=== PATIENT | female | born 1975 | race Caucasian/White ===

== ENCOUNTER 2021-10-16 06:56 | Day surgery (SDC) | payer MEDICARE, MEDICAID ==
[2021-10-16] VITALS (11 sets, daily range): BP systolic 90–109; BP diastolic 57–77
[~2021-10-16] VITALS: Ht 175.3 cm; Wt 80.7 kg
[~2021-10-16 06:56] MED LIST: ACET-1156 PO; ALBUAER3 IN; ASPI-543 PO; ATOR10TA52 PO; BACL10TA PO; BUPR300T28 PO; DICL1GEL50 TD; DOCU100T15 PO; EREN140I SC; ESTR0.1C5 VA; GALC120I SC; HYDR-3682 PO; IBUP600T27 PO; LISI-716 PO; METO-158 PO; NITR-52 PO; NITR0.4S29 SL; OMEP20TA PO; ONDA-144 PO; RIME75TA PO; SUCR1TAB PO; TEMA30CA PO; TOPI50TA53 PO; TRAZ50TA2 PO
[2021-10-16] MEDS ORDERED: BUPIVACAINE 0.5% P/F INJ 10 ML VIAL ONE (08:35)
[2021-10-16] MEDS ORDERED: LIDOCAINE 2%HCL (LOCAL ANESTH.) INJ 20ML MDV ONE (08:36)
[2021-10-16] MEDS ORDERED: IODIXANOL 320MG/ML 100ML BTL IV ONE (08:36)
[2021-10-16] MEDS ORDERED: ONDANSETRON HCL 4 MG/2 ML VIAL ONE (08:41)
[2021-10-16] MEDS ORDERED: ANGIOMAX 250 MG VIAL IV ONE (08:47)
[2021-10-16] MEDS ORDERED: MIDAZOLAM HCL 2MG/2ML 2ml VIAL (1mg/ml) ONE (08:47)
[2021-10-16] MEDS ORDERED: SODIUM CHL 0.9% 0 ML ONE (08:47)
[2021-10-16] MEDS ORDERED: VERAPAMIL 2.5MG/ML INJ 2ML VIAL IV ONE (08:47)
[2021-10-16] MEDS ORDERED: HEPARIN SODIUM (PORCINE) 5000 UNITS/ML 1ML VIAL ONE (08:54)
== END 2021-10-16 12:05 | disposition home or self-care (01) ==
LOC: CATH 06:56
PROVIDERS: ATTEND Internal Medicine Cardiovascular Disease
DX: R07.89 Other chest pain (principal); I25.10 Atherosclerotic heart disease of native coronary artery without angina pectoris; I10 Essential (primary) hypertension; F41.9 Anxiety disorder, unspecified; Z90.710 Acquired absence of both cervix and uterus; Z98.891 History of uterine scar from previous surgery; Z20.822 Contact with and (suspected) exposure to COVID-19
CPT/HCPCS: 93458; C1769; C1887; C1894; J1644; J2250; J2405; J3490; Q9967; U0003; 99152; 99153